=== PATIENT | male | born 1970 | race Caucasian/White ===

== ENCOUNTER 2016-06-01 13:08 | Emergency (ER) | payer OTHER ==
[~2016-06-01] VITALS: Ht 188 cm; Wt 84.1 kg
[~2016-06-01 13:08] MED LIST: CEPHALEXIN500 M1 PO; LORTAB 5/500 501 TAB PO; NORCO 325 MG-51 TAB PO; PERCOCET 325 MG1 TA2 PO; SYNTHROID PO; SYNTHROID0.2 MG/TAB PO
[2016-06-01 13:14] VITALS: TEMP 97.9
[2016-06-01 13:55] LABS: BASO # 0.1 (0.0-0.2); BASO % 0.7 % (0.0-2.0); EOS # 0.1 (0.0-0.7); EOS % 1.3 % (0-4.0); GRAN # 4.2 (1.4-6.5); HEMATOCRIT 45.7 % (42.0-52.0); HEMOGLOBIN 15.6 g/dl (13.5-18.0); LYMPH # 1.9 (1.2-3.4); LYMPH % 28.4 % (20.0-51.0); MEAN CELL VOLUME 92 fl (80.0-100.0); MEAN CORPUSCULAR HEMOGLOBIN 32 pg (27.0-31.0); MEAN CORPUSCULAR HGB CONC 34 g/dl (33.0-37.0); MEAN PLATELET VOLUME 8.7 fl (7.4-10.4); MONO # 0.5 (0.1-0.6); MONO % 7.3 % (1.7-9.3); PLATELET COUNT 265 K/mm3 (130-400); RED BLOOD COUNT 4.95 M/mm3 (4.20-5.60); REDCELL DISTRIBUTION WIDTH-CV 12.4 % (11.5-14.5); WHITE BLOOD COUNT 6.8 K/mm3 (4.8-10.8)
[2016-06-01 14:17] LABS: ADJUSTED CALCIUM 9.4 mg/dL (8.4-10.2); ALBUMIN 4.3 gm/dL (3.5-5.0); BILIRUBIN,TOTAL 1.1 mg/dL (0.0-1.0); CALCIUM 9.6 mg/dL (8.4-10.2); CREATININE, serum 1.01 mg/dL (0.66-1.25); POTASSIUM 4.3 mmol/L (3.4-5.0); TOTAL PROTEIN 7.8 gm/dL (6.4-8.2)
[2016-06-01] MEDS ORDERED: NORCO 325 MG-51 TAB PO (14:35)
[2016-06-01 15:05] VITALS: BP 119/96; PULSE 89
== END 2016-06-01 15:07 | disposition home or self-care (01) ==
LOC: COL.ER 13:08
PROVIDERS: Emergency Medicine
DX: S20.212A Contusion of left front wall of thorax, initial encounter (principal); S20.211A Contusion of right front wall of thorax, initial encounter; V48.5XXA Car driver injured in noncollision transport accident in traffic accident, initial encounter; Y92.410 Unspecified street and highway as the place of occurrence of the external cause; Z23 Encounter for immunization

== ENCOUNTER 2019-12-18 08:10 | Day surgery (SDC) | payer OTHER ==
[~2019-12-18] VITALS: Ht 188 cm; Wt 83.6 kg
[2019-12-18 08:30] VITALS: BP 117/81; PULSE 78; TEMP 98.2
[2019-12-18] MEDS ORDERED: LEVOTHYROXINE SODIUM PO (08:39)
--- NOTE | 2019-12-18 08:40 | NUR ---
TO RM AT 0810- CALL LIGHT IN REACH AT BEDSIDE.
[2019-12-18 09:30] VITALS: BP 107/76; PULSE 70; TEMP 97.7
--- NOTE | 2019-12-18 09:30 | NUR ---
Pt to GI bay 3 via cart from endo. Pt drowsy, but awake. Pt denies pain or nausea. Pt ambulates to recliner with stand by assistance. VSS. in room. Muffin and juice given per pt request. Will continue to monitor. Call light within reach.
[2019-12-18 09:45] VITALS: BP 113/79; PULSE 68
--- NOTE | 2019-12-18 09:45 | NUR ---
Pt continues to rest. Tolerating food and fluids without difficulties. Call light within reach.
[2019-12-18 10:00] VITALS: BP 116/78; PULSE 61
--- NOTE | 2019-12-18 10:00 | NUR ---
Pt resting. Denies needs. Call light within reach.
--- NOTE | 2019-12-18 10:15 | NUR ---
IV site discontinued with all parts intact. Pt up to dress. Call light within reach.
--- NOTE | 2019-12-18 10:30 | NUR ---
into visit with pt and . Discharge instructions provided. Pt escorted to private car via wheel chair. Pt accompanied home by his .
== END 2019-12-18 10:30 | disposition home or self-care (01) ==
LOC: SDCO 08:10
DX: Z12.11 Encounter for screening for malignant neoplasm of colon (principal); Z20.828 Contact with and (suspected) exposure to other viral communicable diseases; Z91.041 Radiographic dye allergy status; Z85.850 Personal history of malignant neoplasm of thyroid
CPT/HCPCS: J2704; J7030